=== PATIENT | female | born 1950 | race Caucasian/White ===

== ENCOUNTER 2018-03-18 00:38 | Outpatient (CLI) | payer MEDICARE, SELFPAY ==
--- NOTE | 2018-03-18 11:52 | DI.MAMMO_ITS ---
SYMPTOM/DIAGNOSIS: SCREENING, Z12.31, HEALTH CARE MAINTENANCE, Z78.9 MAMMOGRAMS: Mammograms were interpreted according to the usual protocol including computer analysis with CAD system, tomosynthesis and C view imaging. Comparison is made with the prior examinations. No suspicious masses or microcalcifications are seen. There is no definite evidence of malignancy. IMPRESSION: Negative mammogram. Routine screening is recommended. Category 1 , breast density B. SA ASSESSMENT OF FINDINGS: Negative. Category 1. Patient will receive a letter notifying them of these results. BI-RADS category B. There are scattered areas of fibroglandular density.
== END 2018-03-18 00:58 ==
PROVIDERS: PCP Physician Assistant; Visit Provider Nurse Practitioner Family
DX: Z12.31 Encounter for screening mammogram for malignant neoplasm of breast (principal)
CPT/HCPCS: 77063; 77067

== ENCOUNTER 2019-04-10 00:37 | Outpatient (CLI) | payer MEDICARE, SELFPAY ==
--- NOTE | 2019-04-10 11:05 | DI.MAMMO_ITS ---
EXAM: MG MAMMO SCREENING CLINICAL HISTORY: SCREENING, Z12.39. TECHNIQUE: Bilateral full field digital CC and MLO mammographic images were obtained with 3D tomosyn thesis and utilizing computer aided detection (CAD). COMPARISON: Available for comparison. FINDINGS: Masses/Architectural Distortion: There are asymmetric density in the retroareolar region of the centr al right breast. This area should be further evaluated with spot compression view and ultrasound. Microcalcifications: No suspicious pleomorphic-type are seen. Skin Thickening/Nipple Retraction: None. IMPRESSION: 1. Small asymmetric density in the central right breast appreciated on the craniocaudad view. 2. This area should be further evaluated with spot compression view and a right breast ultrasound. BI-RADS Cat 0 - Assessment Incomplete: Need additional imaging evaluation Breast Density - Category B - Scattered areas of fibroglandular density A negative radiographic report should not delay biopsy if a dominant or clinically suspicious mass is present. Up to ten percent of cancers are not identified on mammography. A negative report may reinforce clinical impression. Adenosis and dense breasts may obscure an underlying neoplasm. False positive reports average 6 to 10%. Patient will receive a letter notifying them of these results.
== END 2019-04-10 00:57 ==
PROVIDERS: PCP Nurse Practitioner Family; Visit Provider Nurse Practitioner Family
DX: Z12.31 Encounter for screening mammogram for malignant neoplasm of breast (principal); R92.8 Other abnormal and inconclusive findings on diagnostic imaging of breast
CPT/HCPCS: 77063; 77067

== ENCOUNTER 2019-04-14 08:27 | Outpatient (CLI) | payer MEDICARE, SELFPAY ==
--- NOTE | 2019-04-14 11:09 | DI.US_ITS ---
EXAM: MG MAMMO SCREEN CALL BACK UNI AND RIGHT BREAST ULTRASOUND CLINICAL HISTORY: F/U MAMMO, SMALL ASYMMETRIC DENSITY CENTRAL RT BREAST. TECHNIQUE: Craniocaudal and mediolateral oblique Full Field Digital Mammography views with Computer Aided Diagnosis followed by Breast Tomosynthesis and right breast ultrasound. COMPARISON: No exams were available for comparison FINDINGS: Mammography/Tomosynthesis: Breast Density: Breast Density - Category B - Scattered areas of fibroglandular density Masses/Architectural Distortion: None seen. Microcalcifications: No suspicious pleomorphic-type are seen. Skin Thickening/Nipple Retraction: None. Breast Ultrasound: Right breast ultrasound Echotexture: Normal appearance of the glandular tissue. Shadowing: No suspicious foci. Cyst: None. Solid lesions: None seen. Ductal dilation: None. IMPRESSION: 1. No evidence for malignancy. 2. Unless there is more urgent need, follow-up screening mammography is recommended, as per [place] [employer] guidelines. ACR BI-RAD Category- 1 Negative Breast Density - Category B - Scattered areas of fibroglandular density The findings were discussed with the patient on the date of the examination. A negative radiographic report should not delay biopsy if a dominant or clinically suspicious mass is present. Up to ten percent of cancers are not identified on mammography. A negative report may reinforce clinical impression. Adenosis and dense breasts may obscure an underlying neoplasm. False positive reports average 6 to 10%. Patient will receive a letter notifying them of these results.
== END 2019-04-14 08:47 ==
PROVIDERS: PCP Nurse Practitioner Family; Visit Provider Nurse Practitioner Family
DX: Z12.31 Encounter for screening mammogram for malignant neoplasm of breast (principal); R92.8 Other abnormal and inconclusive findings on diagnostic imaging of breast; N64.59 Other signs and symptoms in breast
CPT/HCPCS: 76642; 77063; 77067

== ENCOUNTER 2020-03-02 08:45 | Outpatient (REF) | payer MEDICARE, SELFPAY ==
[2020-03-02 19:42] LABS: Abs Immature Grans 0.01 10^3/uL (0.0-0.06); Absolute Basophil Count 0.06 10^3/uL (0.0-0.2); Absolute Eosinophil Count 0.15 10^3/uL (0.0-0.7); Absolute Lymphocyte Count 1.29 10^3/uL (1.2-3.4); Absolute Monocyte Count 0.48 10^3/uL (0.1-0.8); Absolute Neutrophil Count 3.88 10^3/uL (1.2-6.7); Eosinophils % 2.6; HCT 40.8 % (36.0-46.0); Immature Grans % 0.2; MCH 29.5 pg (27.0-33.0); MCHC 31.9 % (32.0-36.0); MCV 92.7 fL (80-95); MPV 11.2 fL (8.0-11.0); Monocytes % 8.2; Nucleated RBC 0 %; Platelet Count 323 10^3/uL (130-400); RDW 12.9 % (11.7-14.6); RDW-SD 44.1 fL; WBC 5.87 10^3/uL (4.4-10.8)
[2020-03-02 20:04] LABS: ALT 26 U/L (14-59); AST 17 U/L (15-37); Albumin 3.7 g/dL (3.4-5.0); Alkaline Phosphatase 74 U/L (46-116); Anion Gap 7.7 mmol/L (3-11); BUN 10 mg/dL (7-18); Bilirubin, Total 0.5 mg/dL (0.2-1.0); CO2 28.3 mmol/L (21.0-32.0); CREATININE 0.93 mg/dL (0.55-1.02); Calculated LDL 83 mg/dL (<100); Chloride 106 mmol/L (98-107); Cholesterol 163 mg/dL (<200); Glucose 119 mg/dL (74-106); HDL Cholesterol 70 mg/dL (40-60); Sodium 142 mmol/L (136-145); Total Protein 6.9 g/dL (6.4-8.2); Triglyceride 51 mg/dL (<150)
== END 2020-03-02 09:05 ==
LOC: NCHCN 08:45
PROVIDERS: PCP Nurse Practitioner Family; Visit Provider Physician Assistant
DX: E78.5 Hyperlipidemia, unspecified (principal); M19.90 Unspecified osteoarthritis, unspecified site
CPT/HCPCS: 80053; 80061; 85025

== ENCOUNTER 2021-03-22 00:33 | Outpatient (CLI) | payer MEDICARE, SELFPAY ==
--- NOTE | 2021-03-22 14:47 | DI.MAMMO_ITS ---
Exam(s) MAMMO SCREENING EXAM: MAMMO SCREENING CLINICAL HISTORY: SCREENING FOR BREAST CANCER Z12.39 TECHNIQUE: Bilateral full field digital CC and MLO mammographic images were obtained with 3D tomosyn thesis and utilizing computer aided detection (CAD). COMPARISON: Available for comparison. FINDINGS: Masses/Architectural Distortion: None seen. Microcalcifications: No suspicious pleomorphic-type are seen. Skin Thickening/Nipple Retraction: None. IMPRESSION: 1. No significant interval change with no specific features of malignancy noted. 2. Unless there is more urgent need, screening mammography is recommended, as per [place] [employer] guidelines. BI-RADS Category 1 - Negative Breast Density - Category B - Scattered areas of fibroglandular density Breast density category C or D implies that the patient has dense breast tissue. Dense breast tissue is very common and is not abnormal but dense breast tissue can make it harder to find cancer on a ma mmogram. Also, dense breast tissue may increase their breast cancer risk. This information about the result of the mammogram report was provided to the patient to raise their awareness. Use this report when you speak with the patient about their risks for breast cancer, which includes their family hist ory. At that time, you may recommend for more screening tests (Ultrasound or MRI) as they might be us eful based on their risk. A negative radiographic report should not delay biopsy if a dominant or clinically suspicious mass is present. Up to ten percent of cancers are not identified on mammography. A negative report may reinforce clinical impression. Adenosis and dense breasts may obscure an underlying neoplasm. False positive reports average 6 to 10%. Patient will receive a letter notifying them of these results.
== END 2021-03-22 00:53 ==
PROVIDERS: PCP Nurse Practitioner Family; Visit Provider Physician Assistant
DX: Z12.31 Encounter for screening mammogram for malignant neoplasm of breast (principal)
CPT/HCPCS: 77063; 77067

== ENCOUNTER 2022-01-29 18:06 | Emergency (ER) | payer MEDICARE, SELFPAY ==
[2022-01-29] VITALS (21 sets, daily range): BP systolic 129–149; BP diastolic 63–74; PULSE 61–80; RESP 11–18; TEMP 36.5–36.7; O2SAT 92–97
--- OUTSIDE RECORDS SUMMARY | 2022-01-29 18:19 | XMS_ITS | Encounter Summary ---
:1950 Author Organization [facility] Address [facility] [place] [address] Care Team Providers Name Role Phone Brandee Lord Primary Care Provider Reason for Visit Reason Onset Date Comments Results 02/24/2020 BRCA1 mutation (low penetrance) Encounter Details Date Type Department Care Team Description 02/24/2020 Telephone Hematology and Leonor Church, Santosh Results (BRCA1 mutation Oncology at [facility] (low penetrance)) [facility] DR Carvalho HEMATOLOGY/[place] [address] DEPT. [phone] [place], [place] [address] (Wo rk) Social History Tobacco Use Types Packs/Day Years Used Date Never Assessed Sex Assigned at Date Recorded Not on file documented as of this encounter Miscellaneous Notes Telephone Encounter - Leonor Church, [facility] - 02/24/2020 8:55 AM EST This test result was discussed with the patient's , Reginaldo, by phone. A copy of the test results have been scanned in the medical record and sent to Carlene and Reginaldo. A summary of the results isprovided below. Please be advised that [place] law requires that all health care workers respect the confidentiality of this information and not pass it along to other health care providers, insurance companies, or individuals without the written permission of the patient. The Familial Cancer Program welcomes any questions about these matters. Our phone number is: [phone]. On 02/10/2020, Carlene underwent genetic testing for the BRCA1 mutation detected in her daughter. Following are the results of this test. Result: Ashley's BRCA1 analysis showed that Carlene carries the low penetrance pathogenic variant (mutation) in BRCA1 specifically c.[id number]>A ([id number]) previously detected in her daughter. 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 Interpretation: The most significant consequences of carrying a pathogenic variant in BRCA1 are increased risks for breast cancer and ovarian cancer. For a carrier of this low penetrance mutation who has not had cancer, lifetime risk of breast cancer up to age 70 is approximately 20% compared to a ~8% lifetime risk for the general [place] population. Risk of developing ovarian cancer by age 70 is also significantly increased, 6%, compared to a ~1% lifetime risk seen in the general population. It is important to keep in mind that not all individuals who inherit a mutation in the BRCA1 gene will develop cancer. These estimates of cancer risk come from a report analyzing data from 129 families with this exact mutation, and are significantly lower than found in women with more typical BRCA1 mutations. Carlene has reached age 70 without developing cancer, it is not known what her residual risk is for developing cancer but it would be expected to be lower than the risk to age 70. ?? You only need to inherit one copy of the altered gene to have an increased risk for cancer. Since weall have 2 copies of each gene, one from each parent, there is a 50% chance for each child of a parent who has the mutation to inherit the normal copy of the gene and not be at increased risk for the cancer running in the family. There is also a 50% chance for each child to inherit the altered copy ofthe gene and therefore be at increased risk for cancer. ? Carlene's other daughter and son each has a 50% chance of having inherited this mutation and shouldconsider testing. ?? Each of Carlene's siblings has a 50% chance of having inherited the altered gene and should consider testing. If they do not wish to pursue testing, their children may wish to consider testing for themselves. ?? Based on the family history, it is not clear which side of the family this was likely inherited from. Relatives on both sides of the family should be informed of this finding so they can consider testing for themselves.?? We are happy to see family members here for genetic counseling and testing. Our scheduling secretarycan be reached at [phone]. Family members can also go to the website of the National Society ofGenetic Counselors at www.nsgc.org in order to find a cancer genetic counselor in their area. ?? Screening Recommendations: Breast cancer screening: Since this mutation has lower influence on breast cancer risk compared to typical BRCA1 mutations, recommendations of screening should be based in part on family history. Women who carry this alteration should start breast cancer screening with mammograms by age 40. Consideration of breast MRI screening should be based on family history. Since there is no family history of breast cancer, it is appropriate for Carlene to continue with annual mammograms. ?? Ovarian cancer risk management Ovarian cancer (and related serous cancers of the fallopian tube and peritoneum) are very difficult to detect early due to a lack of symptoms. Additionally, there are no reliable means to screen women to detect these cancers early, when there is a good chance for a cure. For this reason, surgical removal of the at- risk organs is recommended for BRCA1 mutation carriers. Carlene can discuss this option with her provider. The gynecological oncology [place] at [facility] may be reached at [phone] to schedulean appointment. ?? Pancreatic cancer screening Some families with mutations in BRCA1 also show an increased incidence of pancreatic cancer. The twomain risk factors, in the general population, for pancreatic cancer are smoking and heavy drinking. Although there is no clear data on the risks of combining smoking and heavy drinking with being a BRCA1 carrier, this test result should be thought of as another good reason, among many others, for any person with this gene change not to engage in either activity. ?? There is no established screening for pancreatic cancer. That said, BRCA1 carriers with a family history of pancreatic cancer as is the case for Carlene, can consider pancreatic cancer screening. If Carlene is interested in discussing screening for pancreatic cancer she can schedule an appointment with Hillary Espinoza MD a wheat washer at [facility] [place]. An appointment can be scheduled her by reaching her clerk secretary at [phone]. Colon Cancer Screening Periodic colonoscopy as recommended by Carlene's wheat washer. BRCA1 mutations do NOT increase the risk for colon cancer. Skin Cancer Screening Annual skin exams by Carlene's primary care provider or computer training specialist. We discussed the option of meeting with Zechariah Ness MD medical oncologist to review the above screening and medical management recommendations. Mr. Cruz will contact us if they decide they would like an appointment either via phone or in person. Carlene may find the online support organization called [employer]: Facing Our Risk of Cancer Empowered a helpful resource. This can be found at [employer]haku? Finally, it can be difficult for people to predict how they will react to learning about the presence of an altered gene in their families and in themselves. A variety of feelings may occur after learning that one carries a gene mutation. Some individuals experience a sense of relief from knowing and u nderstanding the underlying cause of the cancer in the family, or from knowing their personal cancerrisk and gene status. Testing may bring up feelings about other relatives who had cancer. It is not uncommon to experience an increase in anxiety, or sleeplessness, as a result of worries about one's current and future health. One may also worry that other family members might have inherited the altered gene. For some, a consultation with a psychologist, home health care social worker, or psychiatrist may be helpful in dealing with feelings that may arise from genetic testing. If Jazmin would like a referral, we can help to try to recommend a therapist who is familiar with issues surrounding genetic conditions. documented in this encounter Plan of Treatment Not on filedocumented as of this encounter Visit Diagnoses Not on filedocumented in this encounter Care Teams Branch Library Clerk Relationship Specialty Start Date End Date Brandee Lord PA PCP - General Family Medicine 01/12/[address] [place] [id number] documented as of this encounter
--- OUTSIDE RECORDS SUMMARY | 2022-01-29 18:19 | XMS_ITS | Clinical Summary ---
:1950 Author Organization [facility] [place] [address] Care Team Providers Name Role Phone Brandee Lord Primary Care Provider Family History Medical History Relation Comments Pancreatic Cancer Daughter BRCA1 mutation (low penetrance) Lung Cancer Mother Cancer Paternal Grandmother unknown type, shortly after childbirth Cancer Paternal Uncle bone Relation Status Comments Daughter Mother Paternal Grandmother Paternal Uncle Social History Tobacco Use Types Packs/Day Years Used Date Never Assessed Sex Assigned at Date Recorded Not on file Plan of Treatment Health Maintenance Due Date Last Done Comments Covid-19 Vaccine (#1) 1950 Hepatitis C Screening 01/26/1968 Tdap adult 1969 Tetanus vaccine 1969 Breast Cancer Share Decision Needed 1990 Colonoscopy 1995 Breast Cancer screening 01/26/2000 Zoster vaccine (1 of 2) 01/26/2000 Advance Directive 2005 Bone Density Scan 2015 Pneumoccocal Vaccine: 65+ (1 - PCV) 2015 Influenza (Flu) vaccine (1 of 1 - Influenza standard 12/15/2021 series) Insurance Payer Benefit Plan / Subscriber ID Effective Dates Phone Addre ss Type Group MEDICARE MEDICARE PART A [id number] 2020-Kyara [phone] [facility] [place] [id number] Care Teams Head Of Science Relationship Specialty Start Date End Date Brandee Lord PA PCP - General Family Medicine 01/12/[address] [place] [address]
--- OUTSIDE RECORDS SUMMARY | 2022-01-29 18:19 | XMS_ITS | Encounter Summary ---
:1950 Author Organization [facility] [place] [address] Care Team Providers Name Role Phone Brandee Lord Primary Care Provider Reason for Visit Reason Comments Genetic Evaluation Encounter Details Date Type Department Care Team Description 02/02/2020 TH Visit Hematology and Leonor Church, FH: BRCA1 g korey (TeleHealth) Oncology at [facility] [address] [place] HEMATOLOGY/[place]O [address] [place] DEPT. [phone] [place], [place] [address] Social History Tobacco Use Types Packs/Day Years Used Date Never Assessed Sex Assigned at Date Recorded Not on file documented as of this encounter Progress Notes Leonor Church [facility] - 02/02/2020 2:00 PM EDT Carlene Cruz was seen by Leonor Church [facility] in consultation to advise regarding possible heritable predisposition to cancer. I spent 24 minutes of this telephone encounter with the patient and her gathering medical and family history and discussing the likelihood of a genetic predisposition to cancer and the option of genetic testing. Reason for referral/Chief complaint Daughter with BRCA1 mutation. Medical history Cancer hx and treatment: No personal history of cancer Current cancer screening: Annual mammogram. Had a colonoscopy in 2012. Family History Problem Relation Age of Onset ??? Lung Cancer Mother ??? Cancer Paternal Grandmother unknown type, shortly after childbirth ??? Pancreatic Cancer Daughter BRCA1 mutation (low penetrance) ??? Cancer Paternal Uncle bone Genetic risk assessment Based on the known BRCA1 mutation in Carlene's daughter, Carlene has a 50% chance of also being a carrier. Genetic testing for BRCA1 is recommended. Carlene gave verbal consent for testing. I will be mailingthe consent forms to Carlene to complete and return to me. Ashley will send a saliva collection kit with prepaid return envelope directly to Carlene's home to obtain a sample. Instructions for sample collection and return are provided within the kit. Testing will take up to 3 weeks. Due to Carlene's difficulty hearing on the phone, her Reginaldo will be contacted via telephone once her test results become available. If positive, we will offer a follow-up appointment. At that time, we will discuss with Carlene and Reginaldo the implications that thistest result may have for her, as well as her family members. We will also provide Carlene with screening guidelines for cancer prevention and early detection, as well as answer any questions she may have. If Carlene's study is normal, then Reginaldo should be tested to determine if their daughter inherited the mutation from him, or if it occurred new in her. documented in this encounter Plan of Treatment Not on filedocumented as of this encounter Visit Diagnoses Diagnosis FH: BRCA1 gene positive Family history of genetic disease rylan lugo documented in this encounter Care Teams Product Specialist Relationship Specialty Start Date End Date Brandee Lord PA PCP - General Family Medicine 01/12/[address] [place] [id number] documented as of this encounter
--- OUTSIDE RECORDS SUMMARY | 2022-01-29 18:19 | XMS_ITS | Encounter Summary ---
:1950 Demographics Phone Unavailable Preferred Language Unknown Marital Status Unknown Baptism Affiliation Unknown Race Unknown Ethnic Group Unknown Author Organization [facility] Address [address] [place] [address] Care Team Providers Name Role Phone Unavailable Primary Care Provider Unavailable Encounter Details Date Type Department Care Team Description 01/19/2015 Results Only [facility]- Arthur Garcia PA [phone] [address] [place] [address] (Wo rk) Social History Tobacco Use Types Packs/Day Years Used Date Never Assessed Sex Assigned at Date Recorded Not on file documented as of this encounter Plan of Treatment Not on filedocumented as of this encounter Procedures Procedure Name Priority Date/Time Associated Diagnosis Comme nts PAP TEST- RESULT Routine 01/19/2015 0:00 EDT Resu lts for this ONLY procedure are i n the results section. documented in this encounter Results PAP TEST- RESULT ONLY (01/19/2015 0:00 EDT) Pathology Report: CYTOPATHOLOGY REPORT [facility] Reports generated via electronic interface contain ariel ginal data; SERVICES however they are lacking the format of the original re port. Caution should be taken when reading/interpreting unfo rmatted reports. Name: ? JOHN MERLOS ? Accession #: ? [id number] : ? 1950 (Age: 64) ??F ?Collect Date: ? 01/19 Location: ? [facility] ? Receive Date : ? 01/20/2015 Provider: ?ARTHUR SANABRIA Copy to: ? Specimen/Source: ? Pap Test, Cervix/Endocervix, ThinPrep Imaging System with manual evaluation Last Menstrual Period: ? Unknown Menstrual/ Status: ? Post Other: ? Additional clinical information: Last Pap 20 yrs ago ? SPECIMEN ADEQUACY ? Satisfactory for Evaluation - transformation zone component absent GENERAL CATEGORIZATION ? Negative for Intraepithelial Lesion or Malignan cy INTERPRETATION ? Shift in autumn present suggestive of bacterial vaginosis. ? Document reviewed and electronically signed by: ? DIONNA Corcoran(ASCP) ? Report Date: ??01/21/2015 15:16 End of Report Specimen Performing Organization Address City/State/ZIP Code Phon e Number [facility] [address] [place] [address] SERVICES documented in this encounter Visit Diagnoses Not on filedocumented in this encounter
--- OUTSIDE RECORDS SUMMARY | 2022-01-29 18:19 | XMS_ITS | Encounter Summary ---
:1950 Author Organization [facility] [place] [address] Care Team Providers Name Role Phone Brandee Lord Primary Care Provider Encounter Details Date Type Department Care Team Description 01/28/2020 Notes Only Hematology and Oncology at Zechariah Edouard MD [facility] [address] HEMATOLOGY/[place] [address] [place] [address] [phone] (Wo rk) Social History Tobacco Use Types Packs/Day Years Used Date Never Assessed Sex Assigned at Date Recorded Not on file documented as of this encounter Progress Notes Zechariah Ness MD - 01/28/2020 2:06 PM EDT I have reviewed the patient's record and given personal and/or family history of cancer she should be seen by genetic counselor. This is scheduled for next week. documented in this encounter Plan of Treatment Not on filedocumented as of this encounter Visit Diagnoses Not on filedocumented in this encounter Care Teams Extension Educator Relationship Specialty Start Date End Date Brandee Lord PA PCP - General Family Medicine 01/12/[address] [place] [phone] documented as of this encounter
--- NOTE | 2022-01-29 19:00 | RT.EKG_ITS ---
APPROVED REPORT Exam: Resting ECG Reason for Exam: nausea Patient Location: E HR:67 bpm ECG Measurements Heart Rate 67 AXIS ND 160 P 58 QRSd 86 QRS 6 QT 468 T 26 QTc 493 Conclusion Sinus rhythm...normal P axis, V-rate 60- 99 Physician: no stemi
[2022-01-29] MEDS: Ketorolac 15 MG/ML VIAL IVP (20:10)
[2022-01-29] MEDS: Ondansetron 4 MG/2 ML VIAL IVP (20:13)
[2022-01-29] MEDS: ACETAMINOPHEN 1,000 MG/100 ML BTL 400 MG IVPB (20:18)
[2022-01-29 20:35] LABS: Abs Immature Grans 0.04 10^3/uL (0.0-0.06); Absolute Basophil Count 0.02 10^3/uL (0.0-0.2); Absolute Monocyte Count 0.53 10^3/uL (0.1-0.8); Absolute Neutrophil Count 9.64 10^3/uL (1.2-6.7); Basophils % 0.2; HCT 40.1 % (36.0-46.0); HGB 13.2 g/dL (11.2-15.7); Immature Grans % 0.4; Lymphocytes % 1.9; MCH 29.8 pg (27.0-33.0); MCHC 32.9 % (32.0-36.0); MCV 91 fL (80-95); MPV 10.8 fL (8.0-11.0); Monocytes % 5.1; Neutrophils % 92.4; Platelet Count 272 10^3/uL (130-400); RBC 4.43 10^6/uL (3.93-5.22); RDW 12.8 % (11.7-14.6); RDW-SD 42.7 fL; WBC 10.43 10^3/uL (4.4-10.8)
[2022-01-29] MEDS: Lactated Ringers 1,000 ML 1000 ML IV (20:37)
[2022-01-29 20:54] LABS: ALT 33 U/L (14-59); AST 24 U/L (15-37); Albumin 3.8 g/dL (3.4-5.0); Alkaline Phosphatase 77 U/L (46-116); Anion Gap 8.6 mmol/L (3-11); BUN 12 mg/dL (7-18); Bilirubin, Total 0.3 mg/dL (0.2-1.0); CO2 29.4 mmol/L (21.0-32.0); Calcium 9.3 mg/dL (8.5-10.1); Chloride 101 mmol/L (98-107); Estimated GFR 59.86 (mL/min/1.73m2); Glucose 167 mg/dL (74-106); Potassium 3.3 mmol/L (3.5-5.1); Sodium 139 mmol/L (136-145); Total Protein 7.9 g/dL (6.4-8.2)
--- NOTE | 2022-01-29 21:18 | ED.GENADUL_ITS ---
Discharge Plan Disposition Patient Disposition: HOME Condition: Stable Discharge Details Clinical Impression: COVID-19 Primary Care Provider: Stormy Irving ED Provider: Aylin Pepper Home Meds and New Rx's Prescriptions: New metoclopramide HCl [Reglan] 10 mg tablet 10 mg PO Q6H PRNQty: 10 0RF Continued cyanocobalamin (vitamin B-12) [Vitamin B-12] 500 MCG tablet 500 mcg PO DAILY vitamin E (dl, acetate) 400 UNITS capsule 400 units PO DAILY meclizine [Antivert] 12.5 MG tablet 12.5 mg PO Q6H PRN PRNQty: 6 0RF ondansetron 4 MG tablet,disintegrating 4 mg PO Q6H PRN PRNQty: 5 0RF atorvastatin 40 mg tablet 1 tab PO HS Discharge Instructions Instructions: Viral Syndrome (ED) Additional Instructions: Isolate for 6 days and wear mask thereafter until your symptoms resolve Take ibuprofen and Tylenol for fever and pain control Take Reglan as needed for nausea and vomiting Take the Paxlovid, this will potentially shorten the course and severity of your illness stop takinng your atorvastatin while taking the paxlovid small sips of fluids while you are nauseous, popsicles return earlier should you have new or worsening complaints Referrals: Stormy Irving, DISPOSAL MAN [Primary Care Provider] - Medical Decision Making Patient appears well, she is able to tolerate p.o., her headache has resolved She is placed on Paxil elevated She is ambulatory with steady gait She is instructed to stop taking her atorvastatin while she is on the Paxil event and given antiemetics for home She discharged home in stable condition with stable vital Isolation precautions reviewed and patient expressed understanding Medical Records Medical records reviewed: Yes I reviewed the patient's medical records. Lab Data Lab results reviewed: Yes I reviewed the patient's lab results. HPI General Date/Time Provider Initiated Documentation: 01/29/22 18:58 . HPI Narrative: This 72-year-old female presents with nausea, vomiting, headache, fever today. Denies any chest pain or shortness of breath. Denies any dizziness or weakness. Denies any shortness of breath. Does report cough. Hypoxic respiratory symptoms. Fully vaccinated for COVID Related Data Home Medications Medication Instructions Recorded Confirmed cyanocobalamin (vitamin B-12) 500 500 mcg PO DAILY 01/06/13 01/29/22 mcg tablet (Vitamin B-12) vitamin E (dl, acetate) 180 mg 400 units PO DAILY 01/06/13 01/29/22 (400 unit) capsule meclizine 12.5 mg tablet (Antivert) 12.5 mg PO Q6H PRN PRN #6 tabs 08/29/14 ondansetron 4 mg disintegrating 4 mg PO Q6H PRN PRN ##5 08/29/14 tablet atorvastatin 40 mg tablet 1 tab PO HS 01/29/22 01/29/22 metoclopramide HCl 10 mg tablet 10 mg PO Q6H PRN #10 tabs 01/29/22 (Reglan) Previous Rx's Medication Instructions Recorded meclizine 12.5 mg tablet (Antivert) 12.5 mg PO Q6H PRN PRN #6 tabs 08/29/14 ondansetron 4 mg disintegrating 4 mg PO Q6H PRN PRN ##5 08/29/14 tablet metoclopramide HCl 10 mg tablet 10 mg PO Q6H PRN #10 tabs 01/29/22 (Reglan) Allergies Allergy/AdvReac Type Severity Reaction Status Date / Time guaifenesin Allergy Unknown Verified 01/29/22 20:49 pseudoephedrine Allergy Unknown Unverified 01/29/22 20:49 aspirin AdvReac Intermediate ulcers Unverified 01/29/22 20:49 General Stated Complaint: [facility] YANELIS: 4 Review of Systems All systems reviewed & are unremarkable except as noted in HPI and below PFSH All Active Problems (Updated 01/29/22 @ 21:27 by DANIELE Bojorquez) COVID-19 (Acute) Social History Smoking/Tobacco Use Status: Never Smoking risk assessment performed?: Yes Alcohol Intake: former Drug use: Never Substance use type: does not use Exam Const General: cooperative and comfortable Orientation: alert and oriented x3 HENMT Mouth: oral mucosae normal Eyes Sclera: sclerae normal Neck Other: No meningismus Resp Effort & Inspection: normal respiratory effort Auscultation: clear to auscultation bilaterally Cardio Rate: regular rate Rhythm: regular rhythm GI Inspection: normal to inspection Other: Nontender abdominal exam Skin General skin exam: no rashes or lesions noted Neuro General: patient alert and patient oriented x3 Cranial Nerves: CN's II-XI intact bilaterally and tongue midline Cognition: normal cognition Speech: speech normal Gait: normal gait Sensory Exam: no sensory deficits noted Extrem General: normal to inspection Course Vital Signs Vital signs: Vital Signs Temperature 36.7 C 01/29/22 18:19 Pulse 78 01/29/22 18:19 Respiratory Rate 14 01/29/22 18:19 Blood Pressure 146/74 H 01/29/22 18:19 Pulse Oximetry 97 01/29/22 18:19 Temperature 36.7 C 01/29/22 18:19 Temperature Source Tympanic 01/29/22 18:19 Pulse 78 01/29/22 18:19 Respiratory Rate 17 01/29/22 20:38 Respiratory Effort Non-Labored 01/29/22 20:38 Respiratory Depth Normal 01/29/22 20:38 Respiratory Pattern Normal 01/29/22 20:38 Blood Pressure 146/74 H 01/29/22 18:19 Blood Pressure Position Sitting 01/29/22 18:19 Pulse Oximetry 97 01/29/22 18:19 Oxygen Delivery Method Room Air 01/29/22 18:19 Oxygen Flow Rate 0 01/29/22 18:19 Lab/Test Results Lab/Test Results: Laboratory Tests Range/Units 01/29/22 01/29/22 20:10 20:10 WBC (4.4-10.8) 10^3/uL 10.43 RBC (3.93-5.22) 10^6/uL 4.43 Hgb (11.2-15.7) g/dL 13.2 Hct (36.0-46.0) % 40.1 MCV (80-95) fL 91 MCH (27.0-33.0) pg 29.8 MCHC (32.0-36.0) % 32.9 RDW (11.7-14.6) % 12.8 Plt Count (130-400) 10^3/uL 272 MPV (8.0-11.0) fL 10.8 Immature Gran % 0.4 Neutrophils % 92.4 Lymphocytes % 1.9 Monocytes % 5.1 Eosinophils % 0.0 Basophils % 0.2 Nucleated RBC % (0.0-0.3) % 0.0 Absolute Neutrophils (1.2-6.7) 10^3/uL 9.64 H Absolute Lymphocytes (1.2-3.4) 10^3/uL 0.20 L Absolute Monocytes (0.1-0.8) 10^3/uL 0.53 Absolute Eosinophils (0.0-0.7) 10^3/uL 0.00 Absolute Basophils (0.0-0.2) 10^3/uL 0.02 Sodium (136-145) mmol/L 139 Potassium (3.5-5.1) mmol/L 3.3 L Chloride (98-107) mmol/L 101 Carbon Dioxide (21.0-32.0) mmol/L 29.4 Anion Gap (3-11) mmol/L 8.6 BUN (7-18) mg/dL 12 Creatinine (0.55-1.02) mg/dL 1.0 Est GFR (CKD-EPI 2020) (mL/min/1.73m2) 59.86 Glucose (74-106) mg/dL 167 H Calcium (8.5-10.1) mg/dL 9.3 Total Bilirubin (0.2-1.0) mg/dL 0.3 AST (15-37) U/L 24 ALT (14-59) U/L 33 Alkaline Phosphatase (46-116) U/L 77 Total Protein (6.4-8.2) g/dL 7.9 Albumin (3.4-5.0) g/dL 3.8
[2022-01-29] MEDS: Metoclopramide 10 MG TAB PO (22:28)
--- NOTE | 2022-01-29 22:50 | NUR.NOTE ---
Nursing Note:Per provider UA wasn't needed. UA cancelled.
== END 2022-01-29 22:40 | disposition home or self-care (01) ==
PROVIDERS: Emergency Provider Physician Assistant; PCP Nurse Practitioner Family
DX: U07.1 COVID-19 (principal)
CPT/HCPCS: 36415; 80053; 93005; 96361; 96374; 96375; 99284; 81003; 85025; 93010; J0131; J1885; J2405

== ENCOUNTER 2022-03-15 15:20 | Outpatient (REF) | payer MEDICARE, SELFPAY ==
[2022-03-15 20:34] LABS: ALT 28 U/L (14-59); AST 26 U/L (15-37); Albumin 3.6 g/dL (3.4-5.0); Alkaline Phosphatase 84 U/L (46-116); Anion Gap 4.9 mmol/L (3-11); BUN 14 mg/dL (7-18); Bilirubin, Total 0.4 mg/dL (0.2-1.0); CO2 29.1 mmol/L (21.0-32.0); CREATININE 0.8 mg/dL (0.55-1.02); Chloride 104 mmol/L (98-107); Estimated GFR 78.24 (mL/min/1.73m2); Glucose 101 mg/dL (74-106); Potassium 4.1 mmol/L (3.5-5.1); Sodium 138 mmol/L (136-145); Total Protein 7.4 g/dL (6.4-8.2)
== END 2022-03-15 15:21 | disposition home or self-care (01) ==
LOC: NCHCN 15:20
PROVIDERS: PCP Physician Assistant; Visit Provider Physician Assistant
DX: E78.5 Hyperlipidemia, unspecified (principal); R73.03 Prediabetes
CPT/HCPCS: 80053

== ENCOUNTER 2023-04-12 10:53 | Outpatient (REF) | payer MEDICARE, SELFPAY ==
[2023-04-12 19:27] LABS: ALT 61 U/L (14-59); AST 36 U/L (15-37); Albumin 3.6 g/dL (3.4-5.0); Alkaline Phosphatase 77 U/L (46-116); Anion Gap 6.7 mmol/L (3-11); BUN 12 mg/dL (7-18); Bilirubin, Total 0.4 mg/dL (0.2-1.0); CO2 28.3 mmol/L (21.0-32.0); CREATININE 0.9 mg/dL (0.55-1.02); Calcium 9.4 mg/dL (8.5-10.1); Chloride 104 mmol/L (98-107); Glucose 124 mg/dL (74-106); LDL CHOLESTEROL 71 mg/dL (<100); Potassium 4.1 mmol/L (3.5-5.1); Sodium 139 mmol/L (136-145); Total Protein 7.6 g/dL (6.4-8.2)
[2023-04-12 19:53] LABS: Hemoglobin A1C 6.2 % (<5.7)
== END 2023-04-12 10:54 | disposition home or self-care (01) ==
LOC: NCHCN 10:53
PROVIDERS: PCP Physician Assistant; Visit Provider Physician Assistant
DX: I10 Essential (primary) hypertension (principal); E78.5 Hyperlipidemia, unspecified; R73.03 Prediabetes
CPT/HCPCS: 80053; 83721; 83036

== ENCOUNTER → 2023-05-04 00:18 | Outpatient (CLI) | payer MEDICARE, SELFPAY ==
--- NOTE | 2023-05-04 12:50 | DI.MAMMO_ITS ---
Exam(s) MAMMO SCREENING EXAM: MAMMO SCREENING CLINICAL HISTORY: SCREENING MAMMO FOR BREAST CANCER Z12.31. TECHNIQUE: Bilateral full field digital CC and MLO mammographic images were obtained with 3D tomosyn thesis and utilizing computer aided detection (CAD). COMPARISON: Prior mammograms were reviewed. FINDINGS: There has been no significant change in the appearance and distribution of the fibroglandular tissue. There are no new spiculated masses nor malignant appearing microcalcification groups. There is no significant architectural distortion nor skin thickening-retraction. IMPRESSION: No radiographic evidence of malignancy. BI-RADS Category 1 - Negative Breast Density - Category B - Scattered areas of fibroglandular density Breast density Category C or D implies that the patient has dense breast tissue. Dense breast tissue can make it harder to find cancer on a mammogram. Dense breast tissue is also associated with an incr eased risk of breast cancer. This information about the result of the mammogram report was provided to the patient to raise their awareness. Use this report when you speak with the patient about their risks for breast cancer, which includes their family history. At that time, you may recommend additional screening tests (Ultrasoun d or MRI) as these tests may add significant information. A negative radiographic report should not delay biopsy if a dominant or clinically suspicious mass is present. Up to ten percent of cancers are not identified on mammography. A negative report may reinforce clinical impression. Adenosis and dense breasts may obscure an underlying neoplasm. False positive reports average 6 to 10%. Patient will receive a letter notifying them of these results.
== END ==
PROVIDERS: PCP Physician Assistant; Visit Provider Physician Assistant
DX: Z12.31 Encounter for screening mammogram for malignant neoplasm of breast (principal)
CPT/HCPCS: 77063; 77067

== ENCOUNTER → 2023-09-20 10:32 | Outpatient (BNVA) | payer MEDICARE, SELFPAY | PROVIDERS: PCP Physician Assistant; Referring Provider Physician Assistant; Visit Provider Physical Therapy Assistant | DX: Z12.11 Encounter for screening for malignant neoplasm of colon (principal) ==

== ENCOUNTER 2023-10-10 13:45 | Outpatient (REF) | payer MEDICARE, SELFPAY ==
[2023-10-10 20:26] LABS: Abs Immature Grans 0.02 10^3/uL (0.0-0.06); Absolute Eosinophil Count 0.14 10^3/uL (0.0-0.7); Absolute Lymphocyte Count 1.58 10^3/uL (1.2-3.4); Absolute Monocyte Count 0.76 10^3/uL (0.1-0.8); Absolute Neutrophil Count 4.43 10^3/uL (1.2-6.7); Basophils % 1.4 %; HCT 40.4 % (36.0-46.0); Immature Grans % 0.3 %; Lymphocytes % 22.5 %; MCH 30.2 pg (27.0-33.0); MCHC 32.2 % (32.0-36.0); MCV 94 fL (80-95); MPV 10.8 fL (8.0-11.0); Monocytes % 10.8 %; Platelet Count 327 10^3/uL (130-400); RBC 4.31 10^6/uL (3.93-5.22); RDW 12.8 % (11.7-14.6); RDW-SD 44.2 fL; WBC 7.03 10^3/uL (4.4-10.8)
[2023-10-10 20:53] LABS: ALT 37 U/L (14-59); AST 29 U/L (15-37); Albumin 3.8 g/dL (3.4-5.0); Alkaline Phosphatase 78 U/L (46-116); Anion Gap 5.4 mmol/L (3-11); BUN 14 mg/dL (7-18); Bilirubin, Total 0.42 mg/dL (0.2-1.0); CO2 30.6 mmol/L (21.0-32.0); CREATININE 0.9 mg/dL (0.55-1.02); Calcium 9.5 mg/dL (8.5-10.1); Chloride 108 mmol/L (98-107); Glucose 98 mg/dL (74-106); Potassium 4.8 mmol/L (3.5-5.1); Sodium 144 mmol/L (136-145); Total Protein 7.5 g/dL (6.4-8.2)
[2023-10-11 18:50] LABS: Hepatitis C Ab w Rflx HCV PCR Negative (Negative)
== END 2023-10-10 13:46 | disposition home or self-care (01) ==
LOC: NCHCN 13:45
PROVIDERS: PCP Physician Assistant; Visit Provider Physician Assistant
DX: R94.5 Abnormal results of liver function studies (principal); Z11.59 Encounter for screening for other viral diseases
CPT/HCPCS: 80053; 86803; 85025

== ENCOUNTER 2024-05-07 00:35 | Outpatient (CLI) | payer MEDICARE, MEDICAID, SELFPAY ==
--- NOTE | 2024-05-07 11:53 | DI.MAMMO_ITS ---
Exam(s) MAMMO SCREENING EXAM: MAMMO SCREENING CLINICAL HISTORY: Z12.31 Screening. TECHNIQUE: Bilateral full field digital CC and MLO mammographic images were obtained with 3D tomosyn thesis and utilizing computer aided detection (CAD). COMPARISON: Prior mammograms were reviewed. FINDINGS: There has been no significant change in the appearance and distribution of the fibroglandular tissue. There are no new spiculated masses nor malignant appearing microcalcification groups. There is no significant architectural distortion nor skin thickening-retraction. IMPRESSION: No radiographic evidence of malignancy. BI-RADS Category 1 - Negative Breast Density - Category B - Scattered areas of fibroglandular density Breast density Category C or D implies that the patient has dense breast tissue. Dense breast tissue can make it harder to find cancer on a mammogram. Dense breast tissue is also associated with an incr eased risk of breast cancer. This information about the result of the mammogram report was provided to the patient to raise their awareness. Use this report when you speak with the patient about their risks for breast cancer, which includes their family history. At that time, you may recommend additional screening tests (Ultrasoun d or MRI) as these tests may add significant information. A negative radiographic report should not delay biopsy if a dominant or clinically suspicious mass is present. Up to ten percent of cancers are not identified on mammography. A negative report may reinforce clinical impression. Adenosis and dense breasts may obscure an underlying neoplasm. False positive reports average 6 to 10%. Patient will receive a letter notifying them of these results.
== END 2024-05-07 00:55 ==
PROVIDERS: PCP Physician Assistant; Visit Provider Physician Assistant
DX: Z12.31 Encounter for screening mammogram for malignant neoplasm of breast (principal); R92.323 Mammographic fibroglandular density, bilateral breasts
CPT/HCPCS: 77063; 77067

== ENCOUNTER 2024-09-26 12:50 | Outpatient (REF) | payer MEDICARE, MEDICAID, SELFPAY ==
[2024-09-26 19:42] LABS: Abs Immature Grans 0.01 10^3/uL (0.0-0.06); Absolute Basophil Count 0.08 10^3/uL (0.0-0.2); Absolute Eosinophil Count 0.09 10^3/uL (0.0-0.7); Absolute Lymphocyte Count 1.23 10^3/uL (1.2-3.4); Absolute Monocyte Count 0.58 10^3/uL (0.1-0.8); Absolute Neutrophil Count 3.44 10^3/uL (1.2-6.7); Basophils % 1.5 %; Eosinophils % 1.7 %; HGB 12.8 g/dL (11.2-15.7); Immature Grans % 0.2 %; Lymphocytes % 22.7 %; MCH 29.4 pg (27.0-33.0); MCV 92 fL (80-95); MPV 11.1 fL (8.0-11.0); Monocytes % 10.7 %; Neutrophils % 63.2 %; Platelet Count 334 10^3/uL (130-400); RBC 4.35 10^6/uL (3.93-5.22); RDW 13.1 % (11.7-14.6); RDW-SD 44.8 fL; WBC 5.43 10^3/uL (4.4-10.8)
[2024-09-26 20:00] LABS: Iron 75 ug/dL (50-170); Total Iron Binding Capacity 299 ug/dL (250-450); Transferrin Sat 25 % (15-50)
[2024-09-26 20:13] LABS: ALT 38 U/L (14-59); AST 26 U/L (15-37); Albumin 3.7 g/dL (3.4-5.0); Alkaline Phosphatase 89 U/L (46-116); Anion Gap 4.5 mmol/L (3-11); BUN 12 mg/dL (7-18); Bilirubin, Total 0.4 mg/dL (0.2-1.0); CO2 30.5 mmol/L (21.0-32.0); Calcium 9.3 mg/dL (8.5-10.1); Chloride 107 mmol/L (98-107); Estimated GFR 59.12 (mL/min/1.73m2); Ferritin 155 ng/mL (8-252); Glucose 106 mg/dL (74-106); LDL CHOLESTEROL 72 mg/dL (<100); Potassium 5.1 mmol/L (3.5-5.1); Sodium 142 mmol/L (136-145)
== END 2024-09-26 12:51 | disposition home or self-care (01) ==
LOC: NCHCN 12:50
PROVIDERS: PCP Physician Assistant; Visit Provider Physician Assistant
DX: I10 Essential (primary) hypertension (principal); Z86.39 Personal history of other endocrine, nutritional and metabolic disease
CPT/HCPCS: 80053; 83721; 82728; 83540; 83550; 85025